=== PATIENT | female | born 1935 | race Caucasian/White ===

== ENCOUNTER → 2017-08-09 | Outpatient (CLI) | payer MEDICARE ==
[~2017-08-09] MED LIST: CALCIUM + D PO; HYDROCHLOROTHIAZIDE PO; IRBESARTAN PO; MULTI-VITAMIN1 EACH PO; PRAVASTATIN PO; SYNTHROID PO; VITAMIN B-12 PO; VITAMIN D PO
--- NOTE | 2017-08-09 17:44 | Diagnostic Imaging Report ---
PROCEDURE: Frontal and lateral views of the chest. COMPARISON: Chest radiograph 07/31/2014 INDICATIONS: COUGH FINDINGS: Lines/tubes: None. Lungs: The lungs are well inflated. Stable right upper lobe calcified granuloma. There is no evidence of pneumonia or pulmonary edema. Pleura: There is no pleural effusion or pneumothorax. Heart and mediastinum: The heart and the mediastinum are normal. Bones: No acute bony abnormality. Degenerative changes of the spine. IMPRESSION: No acute cardiopulmonary disease. Dictated by: Aric Conte M.D. on 08/09/2017 at 17:44 Electronically approved by: Aric Conte M.D. on 08/09/2017 at 17:44
== END ==
LOC: RAD 15:59
PROVIDERS: ATTEND Family Medicine
DX: R05 Cough (principal)
CPT/HCPCS: 71046

== ENCOUNTER → 2017-11-16 | Outpatient (CLI) | payer MEDICARE ==
--- NOTE | 2017-11-16 17:08 | Diagnostic Imaging Report ---
PROCEDURE:X-RAY RIGHT KNEE, THREE OR MORE VIEWS COMPARISON:None. INDICATIONS:RIGHT KNEE PAIN FROM FALL FINDINGS: Generalized osteopenia, which limits evaluation of bony structures. 7 mm slightly oval shaped density projecting in the soft tissues anterior to the lower aspect of the patella on the lateral view. No displaced fractures or dislocations. Mild tricompartmental degenerative joint disease, with presence of small osteophytes and mild medial femoral tibial joint space compartment. No suprapatellar effusion. Soft tissue swelling anterior to the patella. CONCLUSION: 1. 7 mm oval-shaped density projecting in the soft tissues anterior to the lower aspect of the patella is indeterminate. This does not have the appearance of a bone fragment and there is no donor site visualized. This likely represents a calcification in the patellar tendon. 2. No acute displaced fracture or dislocation. Richard Anderson M.D. Dictated by: Richard Anderson M.D. on 11/16/2017 at 17:11 Electronically approved by: Richard Anderson M.D. on 11/16/2017 at 17:11
== END ==
LOC: RAD 13:22
PROVIDERS: ATTEND Family Medicine
DX: M25.561 Pain in right knee (principal)

== ENCOUNTER → 2020-05-31 | Outpatient (CLI) | payer MEDICARE | LOC: CT 17:22 | DX: R51.9 Headache, unspecified (principal); R29.6 Repeated falls; R26.81 Unsteadiness on feet | CPT/HCPCS: 70450 ==